=== PATIENT | female | born 1950 ===

== ENCOUNTER 2024-07-16 09:50 | Inpatient (IN) | payer MEDICARE, OTHER, SELFPAY ==
[2024-06-27 13:16] VITALS: BMI 27.7
[2024-06-27 13:51] LABS: Hematocrit 38.6 % (37.0-47.0); Mean Corp Hgb Conc. 33.7 g/dL (33.0-37.0); Mean Corpuscular Hgb 29.9 pg (27.0-31.0); Mean Corpuscular Volume 88.7 fL (81.0-99.0); Mean Platelet Volume 11.1 fL (7.4-10.4); Platelet Count 204 10^3/uL (130-400); Red Blood Cell Count 4.35 10^6/uL (4.20-5.40); Red Cell Dist. Width 12.3 % (11.5-14.5); White Blood Cell Count 6.1 10^3/uL (4.8-10.8)
[2024-06-27 14:15] LABS: ALT (SGPT) 17 U/L (0-35); AST (SGOT) 19 U/L (14-36); Albumin 4.8 g/dl (3.5-5.0); Alkaline Phosphatase 88 U/L (38-126); Blood Urea Nitrogen 19 mg/dl (7-17); Calcium 9.6 mg/dl (8.4-10.2); Carbon Dioxide 26 mmol/L (22-30); Chloride 103 mmol/L (98-107); Estimated Creatinine Clearance 66 ml/min; Glucose 93 mg/dl (70-99); Potassium 4.4 mmol/L (3.5-5.1); Sodium 143 mmol/L (135-145); Total Bilirubin 0.3 mg/dl (0.2-1.3); Total Protein 6.8 g/dl (6.3-8.2); eGFR > 60.00
[2024-06-28 12:31] LABS: Glycohemoglobin (HgbA1c) 5.1 % (4.0-5.6)
[2024-07-10 12:48] VITALS: BMI 27.7
[2024-07-16] VITALS (13 sets, daily range): BP systolic 131–176; BP diastolic 52–82; PULSE 56; O2SAT 99
[2024-07-16] MEDS: CELEBREX 200 MG PO (10:03)
--- NOTE | 2024-07-16 14:37 | W.PN.ORTHO ---
Today's Communication / Plan
-
D/c when clinically stable
Assessment
.
Distal Motor Intact: Yes
Dressing:
Clean, dry and intact.
Assessment:
R knee OA s/p R TKA w/ Dr Ulloa 07/16/24
DVT prophylaxis - Eliquis 2.5 mg PO BID x4 weeks as advised by heme, b/l venous foot pumps
HTN - on Metoprolol - monitor BP
GERD - continue PPI therapy BID
Large hiatal hernia w/ Klever ulcers - minimize NSAIDs post-surgery
- Continue PPI
� Eliquis 2.5 mg BID x4 weeks for DVT prevention
H/o iron deficiency anemia s/p remote IV iron - pre-op hgb stable
- Non-invasive hgb in AM
Hypercholesterolemia
Bilateral venous insufficiency
Migraines
DDD
Glaucoma
H/o tobacco abuse
Plan
.
Surgery / Date: R TKA w/ Dr Ulloa 07/16/24
DVT Prophylaxis: Aspirin
Activity:
Out of bed.
PT/OT
Discharge Plan: Home w/ VN
Subjective
.
.:
Patient resting comfortably in PACU. Groggy from anesthesia.
Vital Signs and Labs
.
Vital Signs and Labs:
Lab Results
06/27/24 12:30
06/27/24 12:30
Physical Exam
-
HEENT: No pallor, cyanosis, or jaundice.
NECK: Supple. No JVD.
RESPIRATORY: Lungs clear to auscultation.
CVS: S1, S2 normal. RRR.�
ABDOMEN: Soft, No distension.
LEAD GAME DESIGNER: AOx3. No focal deficits. dog licenser grossly intact
--- NOTE | 2024-07-16 15:31 | VNURNOTE ---
[facility] liaison called patient's spouse to explain [facility] services, home PT. No answer, left message. Referral placed in [facility].
[2024-07-16] MEDS: ROXICODONE 5 MG PO ×2 (15:35→20:32)
--- NOTE | 2024-07-16 15:37 | VNURNOTE ---
Home Health Liaison spoke with patient's spouse Jose to discuss [facility] nurse/therapy, visits, schedule and homebound status. He is agreeable and understands that visits at home will be 2-3 x per week to assess and teach medical management. Provided
spouse with [facility] contact information. He is aware that [facility] will contact them for start of care in 1-2 days after discharge from .
[facility] referral completed in [facility].
[2024-07-16] MEDS: TYLENOL 650 MG PO ×2 (15:38→22:44)
[2024-07-16] MEDS: NORMOSOL-R/PLASMALYTE-A 1000 IV (16:43)
--- NOTE | 2024-07-16 17:19 | PTCARENOTE ---
report received from pacu. aquacel to right knee. scant drainage noted. vss. family at bedside. normosol @ 100cc/hr infusing. will monitor.
[2024-07-16] MEDS: FOLVITE 0.8 MG PO (17:47)
[2024-07-16] MEDS: VITAMIN D3 (cholecalciferol) 50 MCG PO (17:49)
[2024-07-16] MEDS: DILAUDID 0.5 MG IV (17:55)
[2024-07-16] MEDS: ZOFRAN 4 MG IV (20:23)
[2024-07-16] MEDS: BACTROBAN 2% OINTMENT 1 APPLIC NASAL (20:30)
[2024-07-16] MEDS: ANCEF 5 IV (20:30)
[2024-07-16] MEDS: COLACE PO (20:49)
[2024-07-16] MEDS: PHENERGAN 25 MG IM (22:00)
[2024-07-16] MEDS: ELIQUIS 2.5 MG PO (22:43)
[2024-07-16] MEDS: CRESTOR 5 MG PO (22:43)
[2024-07-16] MEDS: DECADRON 4 MG PO (22:44)
[2024-07-16] MEDS: PROTONIX 40 MG PO (22:44)
[2024-07-16] MEDS: SINGULAIR 10 MG PO (22:44)
[2024-07-17] VITALS (11 sets, daily range): BP systolic 105–159; BP diastolic 51–74; PULSE 56–76; O2SAT 96
[2024-07-17] MEDS: TYLENOL 650 MG PO ×5 (01:09→15:18)
[2024-07-17] MEDS: ROXICODONE 10 MG PO (01:09)
[2024-07-17] MEDS: ANCEF 5 IV (03:09)
[2024-07-17] MEDS: ROXICODONE 5 MG PO ×3 (06:16→20:49)
[2024-07-17] MEDS: ZYRTEC 10 MG PO (08:23)
[2024-07-17] MEDS: DECADRON 4 MG PO ×2 (08:23→20:41)
[2024-07-17] MEDS: COLACE 100 MG PO ×2 (08:24→20:41)
[2024-07-17] MEDS: TOPROL XL 50 MG PO (08:24)
[2024-07-17] MEDS: ELIQUIS 2.5 MG PO ×2 (08:30→20:41)
[2024-07-17] MEDS: VITAMIN D3 (cholecalciferol) 50 MCG PO (08:30)
[2024-07-17] MEDS: FOLVITE 0.8 MG PO (08:30)
[2024-07-17] MEDS: PROTONIX 40 MG PO ×2 (08:30→20:41)
[2024-07-17] MEDS: BACTROBAN 2% OINTMENT 1 APPLIC NASAL ×2 (08:38→20:41)
--- NOTE | 2024-07-17 10:11 | PTCARENOTE ---
pt c/o dizziness, and lightheadedness while working w/ physical therapy. 'im going to pass out.' pt assisted to wheelchair w/o issue by physical therapy. systolic bp of 105. physical therapy assisted pt back to chair
[2024-07-17] MEDS: ZOFRAN 4 MG IV (10:19)
--- NOTE | 2024-07-17 10:43 | W.PN.ORTHO ---
Today's Communication / Plan
-
Monitor orthostatics.
Work w/ PT and OT as able.
D/c when clinically stable.
Assessment
.
Distal Motor Intact: Yes
Dressing:
Scant areas of old incisional bleeding.
Assessment:
R knee OA s/p R TKA w/ Dr Ulloa 07/16/24
DVT prophylaxis - Eliquis 2.5 mg PO BID x4 weeks as advised by [facility] b/l venous foot pumps
Symptomatic orthostasis w/ therapy - Normosol bolus ordered; oral hydration encouraged
- BB continued w/ BP parameters
- Compazine TID w/ Zofran prn for nausea
- Consider Midodrine
- Minimize opioids as able
- Reassess orthostatic VS after bolus
Chronic diarrhea since kamran 09/2023 - 1x episode of diarrhea last night - per pt preference, will only order Colace BID while on post-surgical narcotics
HTN - on Metoprolol w/ SBP/HR parameters - monitor BP
GERD - continue PPI therapy BID
Large hiatal hernia w/ Klever ulcers - minimize NSAIDs post-surgery
- Continue PPI
� Eliquis 2.5 mg BID x4 weeks for DVT prevention
H/o iron deficiency anemia s/p IV iron - pre-op hgb stable - non-invasive 11 POD 1
Hypercholesterolemia
Bilateral venous insufficiency
Migraines
DDD
Glaucoma
H/o tobacco abuse
Plan
.
Surgery / Date: R TKA w/ Dr Ulloa 07/16/24
DVT Prophylaxis: Other (Eliquis )
Activity:
Out of bed.
PT/OT
Discharge Plan: Home w/ VN
Subjective
.
.:
Patient resting comfortably in bed this AM.
Symptomatic orthostasis w/ therapy today (lightheaded, nauseous).
Vital Signs and Labs
.
Vital Signs and Labs:
Lab Results
06/27/24 12:30
06/27/24 12:30
Temp Pulse Resp BP Pulse Ox
98.0 F 64 16 137/64 94
07/17/24 08:32 07/17/24 10:22 07/17/24 08:32 07/17/24 10:22 07/17/24 08:32
Non-invasive Hgb result: 11.0
Physical Exam
-
HEENT: No pallor, cyanosis, or jaundice. Throat clear.
NECK: Supple. No JVD.
RESPIRATORY: Lungs clear to auscultation.
CVS: S1, S2 normal. RRR.�
ABDOMEN: Soft, non-tender. No distension.
EXTREMITIES: Expected R knee post-surgical edema. Strength equal, no calf pain with palpation/dorsiflexion. Calves soft.
MUSIC PROFESSIONALS: AOx3. No focal deficits. clinical research coordinator grossly intact
[2024-07-17] MEDS: NORMOSOL-R/PLASMALYTE-A 500 IV (11:08)
--- NOTE | 2024-07-17 11:38 | CM ---
Reviewed the chart notes and spoke with the patient and her spouse at the bedside. The patient resides with her spouse in a fourth floor condo with a ramp to enter the building with elevator access. The patient has a rolling walker, bsc, shower
chair, and shower grab bar. The patient has had VN in past. The patient has not been to a SNF. The patient's pharmacy of choice is the [facility]. Patient requesting scripts for rolling walker, bsc, and a wheelchair. Request
forwarded to ortho PA. The patient anticipates being discharged to home with VN services. Discussed area VNs, VN selected. Referral placed in [facility]. CM continues to be available to patient/family and is monitoring medical plan for needs
at discharge.
Plan: Discharge to home with VN services.
[2024-07-17] MEDS: COMPAZINE 5 MG PO ×2 (15:17→21:34)
[2024-07-17] MEDS: ROXICODONE 2.5 MG PO (15:28)
[2024-07-17] MEDS: TYLENOL PO ×3 (21:02→23:30)
[2024-07-17] MEDS: CRESTOR 5 MG PO (21:34)
[2024-07-17] MEDS: SINGULAIR 10 MG PO (21:34)
[2024-07-18] MEDS: TYLENOL PO (03:08)
[2024-07-18] MEDS: TYLENOL 650 MG PO ×3 (04:47→11:08)
[2024-07-18] MEDS: ROXICODONE 10 MG PO (07:32)
[2024-07-18] MEDS: ELIQUIS 2.5 MG PO (07:33)
[2024-07-18] MEDS: COLACE 100 MG PO (07:33)
[2024-07-18] MEDS: ZYRTEC 10 MG PO (07:33)
[2024-07-18] MEDS: FOLVITE 0.8 MG PO (07:33)
[2024-07-18] MEDS: COMPAZINE 5 MG PO (07:33)
[2024-07-18] MEDS: PROTONIX 40 MG PO (07:33)
[2024-07-18] MEDS: VITAMIN D3 (cholecalciferol) 50 MCG PO (07:33)
[2024-07-18] MEDS: DECADRON 4 MG PO (07:33)
[2024-07-18] MEDS: TOPROL XL 50 MG PO (07:33)
[2024-07-18 07:55] VITALS: BP 112/73
[2024-07-18 09:20] VITALS: BP 135/59; BP 146/61; BP 147/68; BP 150/58; PULSE 65; PULSE 67; PULSE 72; O2SAT 95
[2024-07-18 09:42] VITALS: BP 135/59; BP 140/61; BP 147/68; PULSE 65; PULSE 67; PULSE 72
--- NOTE | 2024-07-18 09:46 | W.PN.ORTHO ---
Today's Communication / Plan
-
Await OT recs.
D/c later today if remaining clinically stable.
Assessment
.
Distal Motor Intact: Yes
Dressing:
Scant areas of old incisional bleeding - unchanged since yesterday.
Assessment:
R knee OA s/p R TKA w/ Dr Ulloa 07/16/24
DVT prophylaxis - Eliquis 2.5 mg PO BID x4 weeks as advised by lisa b/l venous foot pumps
Symptomatic orthostasis w/ therapy POD 1 - s/p Normosol bolus; oral hydration encouraged
- BB continued w/ BP parameters
- Compazine TID w/ Zofran prn for nausea -> no further nausea; will Rx Compazine upon d/c
- Midodrine not needed
- Minimize opioids as able
- Orthostatic VS stable w/ therapy
Chronic diarrhea since kamran 09/2023 - 1x episode of diarrhea post-op DOS - per pt preference, will only order Colace BID while on post-surgical narcotics
HTN - on Metoprolol w/ SBP/HR parameters - BPs stabilized
GERD - continue PPI therapy BID
Large hiatal hernia w/ Klever ulcers - minimize NSAIDs post-surgery
- Continue PPI
� Eliquis 2.5 mg BID x4 weeks for DVT prevention
H/o iron deficiency anemia s/p IV iron - pre-op hgb stable - non-invasive 12.6 POD 2
Hypercholesterolemia
Bilateral venous insufficiency
Migraines
DDD
Glaucoma
H/o tobacco abuse
The patient is in need of a temporary light-weight wheelchair due to her inability to self propel in a standard wheelchair. The patient was provided with a script for wheelchair rental upon d/c.
Plan
.
Surgery / Date: R TKA w/ Dr Ulloa 07/16/24
DVT Prophylaxis: Other (Eliquis )
Activity:
Out of bed.
PT/OT
Discharge Plan: Home w/ VN
Subjective
.
.:
Patient resting comfortably in her chair today.
Did well w/ PT. Awaiting OT session.
No further episodes of symptomatic orthostasis.
Eager for potential d/c today.
Vital Signs and Labs
.
Vital Signs and Labs:
Lab Results
06/27/24 12:30
06/27/24 12:30
Temp Pulse Resp BP Pulse Ox
97.7 F 64 16 112/73 97
07/18/24 07:55 07/18/24 07:55 07/18/24 07:55 07/18/24 07:55 07/18/24 07:55
Non-invasive Hgb result: 12.6
Physical Exam
-
HEENT: No pallor, cyanosis, or jaundice. Throat clear.
NECK: Supple. No JVD.
RESPIRATORY: Lungs clear to auscultation.
CVS: S1, S2 normal. RRR.�
ABDOMEN: Soft, non-tender. No distension.
EXTREMITIES: Expected R knee post-surgical edema. Strength equal, no calf pain with palpation/dorsiflexion. Calves soft.
EXERCISE INSTRUCT: AOx3. No focal deficits. receiving coordinator grossly intact
--- NOTE | 2024-07-18 10:03 | W.DS.TRANS ---
DC Summary - Spotter
-
Discharge Instructions:
Sleep Apnea Risk Low
Discharge Diagnosis/Procedures R knee OA s/p R TKA w/ Dr Ulloa 07/16/24
Diet Regular
Activity As tolerated,With Walker
Driving Restrictions Not until seen by your Dr
Bathing Restrictions OK to Shower
Other Services PT,VN
Wound Care Dressing to be removed 1 week post-surgery.
Instructions:
Stand-Alone Forms: Total Hip/Knee Replacement D/C
Changes to Home Medications: Yes
Discharge Medications:
DC Medications w/original date entered in [facility]
cetirizine 10 mg tablet (Zyrtec) 10 mg PO DAILY Allergies 07/10/24
cholecalciferol (vitamin D3) 50 mcg (2,000 unit) capsule (Vitamin D3) 50 mcg PO DAILY Supplement 07/10/24
folic acid 800 mcg tablet 0.8 mg PO DAILY Supplement 07/10/24
magnesium 200 mg tablet 400 mg PO DAILY Supplement 07/10/24
metoprolol succinate 50 mg tablet,extended release 24 hr 50 mg PO DAILY Blood Pressure 07/10/24
montelukast 10 mg tablet 10 mg PO HS ASTHMA 07/10/24
mupirocin 2 % topical ointment 1 applic topical BID Infection 07/10/24
pantoprazole 40 mg tablet,delayed release 40 mg PO BID GERD 07/10/24
rosuvastatin 5 mg tablet 5 mg PO HS High Cholesterol 07/10/24
acetaminophen 650 mg tablet,extended release 650 mg PO Q4HWA Pain #1 tab 07/18/24
apixaban 2.5 mg tablet (Eliquis) 2.5 mg PO BID #60 tabs 07/18/24
dexamethasone 4 mg tablet 4 mg PO Q12H Anti-inflammatory #7 tabs 07/18/24
docusate sodium 100 mg capsule 100 mg PO BID #30 caps 07/18/24
oxycodone 5 mg tablet 5 - 10 mg (1 - 2 x 5 mg) PO Q6H PRN moderate-severe pain #30 tabs 07/18/24
prochlorperazine maleate 5 mg tablet 5 mg PO Q8H PRN nausea and vomiting #30 tabs 07/18/24
sennosides 8.6 mg tablet (senna) 17.2 mg (2 x 8.6 mg) PO BID PRN Constipation #30 tabs 07/18/24
Home Medication Changes
acetaminophen 650 mg tablet,extended release 650 mg PO Q4HWA Pain #1 tab 07/18/24
apixaban 2.5 mg tablet (Eliquis) 2.5 mg PO BID #60 tabs 07/18/24
dexamethasone 4 mg tablet 4 mg PO Q12H Anti-inflammatory #7 tabs 07/18/24
docusate sodium 100 mg capsule 100 mg PO BID #30 caps 07/18/24
oxycodone 5 mg tablet 5 - 10 mg (1 - 2 x 5 mg) PO Q6H PRN moderate-severe pain #30 tabs 07/18/24
prochlorperazine maleate 5 mg tablet 5 mg PO Q8H PRN nausea and vomiting #30 tabs 07/18/24
sennosides 8.6 mg tablet (senna) 17.2 mg (2 x 8.6 mg) PO BID PRN Constipation #30 tabs 07/18/24
Pending Results: No
[2024-07-18 10:16] VITALS: BP 150/58; PULSE 62; O2SAT 94
--- NOTE | 2024-07-18 10:27 | CM ---
Reviewed the chart notes. Patient is being discharged to home today. CM continues to be available to patient/family and is monitoring medical plan for needs at discharge.
Plan: Discharge to home with [facility] services.
[2024-07-18 11:27] VITALS: BP 139/63
== END 2024-07-18 13:10 | disposition home health service (06) | DRG 470 ==
LOC: 2 SOUTH 09:50
PROVIDERS: ADMITTING PHYSICIAN Specialist; FAMILY PHYSICIAN Family Medicine; REFERRING PHYSICIAN Internal Medicine Cardiovascular Disease
PROC: 0SRC0J9 Replacement of Right Knee Joint with Synthetic Substitute, Cemented, Open Approach (ICD-10-PCS; 2024-07-16)
DX: M17.11 Unilateral primary osteoarthritis, right knee (principal); K44.9 Diaphragmatic hernia without obstruction or gangrene; E78.00 Pure hypercholesterolemia, unspecified; I10 Essential (primary) hypertension; K52.9 Noninfective gastroenteritis and colitis, unspecified; D50.9 Iron deficiency anemia, unspecified; I95.1 Orthostatic hypotension; Z87.891 Personal history of nicotine dependence
CPT/HCPCS: 36415; 73560; 80053; 83036; 85027; 87070; 97110; 97116; 97162; 97166; 97530; 97535; C1713; C1776